=== PATIENT | female | born 1980 | race American Indian/Alaskan Native ===

== ENCOUNTER 2017-02-04 07:54 | Day surgery (SDC) | payer MEDICAID ==
[2017-01-14 07:28] VITALS: BMI 32.7
[2017-02-04] MEDS ORDERED: Midazolam 2 MG/2 ML VIAL ONE (10:20)
[2017-02-04] MEDS ORDERED: Propofol 10 mg/ml Inj (20 ML) ONE ×3 (10:21→11:51)
[2017-02-04] MEDS ORDERED: Lidocaine Hydrochloride 5 ML INJ ONE (10:23)
[2017-02-04] MEDS ORDERED: Rocuronium 10 mg/ml (5 ml) ONE (10:23)
[2017-02-04] MEDS ORDERED: ceFAZolin IV 2 gm in Dextrose 2 GM/50 ML BAG IVPB ONE (10:28)
[2017-02-04] MEDS ORDERED: Lactated Ringer's 1,000 ML IV ONE ×3 (10:33→12:17)
[2017-02-04] MEDS: Bupivacaine-Epi 0.25%-1:200,000 PF Inj ONE ×2 (11:14→12:05)
[2017-02-04] MEDS: Lidocaine 1% Inj (20ml) ONE ×2 (11:14→12:05)
[2017-02-04] MEDS: Bupivacaine HCl 0.25% PF (10 ml) Inj ONE ×4 (11:16→11:48)
[2017-02-04] MEDS: HYDROmorphone 0.5 mg/0.5 ml ISec IVP PRN ×4 (12:31→13:48)
[2017-02-04] MEDS ORDERED: HYDROmorphone 0.5 mg/0.5 ml ISec ONE (12:31)
--- NOTE | 2017-02-04 12:32 | PCM.SURG1 ---
Surgeon's Initial Post Op Note - Surgeon's Notes Surgeon: [employer] Supervisor: PGY4, Sakina RFNA Type of Anesthesia: General Endo, Local Pre-Operative Diagnosis: cholelithiasis Operative Findings: adhesions, large elongated gallbladder Post-Operative Diagnosis: cholelithiasis Operation Performed: Robotic assisted laparoscopic cholecystectomy, TAP block Specimen/Specimens Removed: gallbladder Estimated Blood Loss: EBL {In ML}: 10 Blood Products Given: N/A Drains Used: No Drains Post-Op Condition: Good Date of Surgery/Procedure: 02/04/17 Time of Surgery/Procedure: 10:30
[2017-02-04] MEDS ORDERED: Oxycodone/Acetaminophen 5/325 mg Tab PO ONE (12:38)
[2017-02-04 17:07] VITALS: BP 122/77; PULSE 88; RESP 16; TEMP 97.6; O2SAT 95
--- NOTE | 2017-02-04 19:28 | OP ---
PROCEDURE DATE: 02/04/2017 PREOPERATIVE DIAGNOSES: Chronic cholecystitis and cholelithiasis. POSTOPERATIVE DIAGNOSES: 1. Chronic cholecystitis and cholelithiasis. 2. 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 PROCEDURES DONE: 1. Robotic cholecystectomy. 2. Robotic lysis of adhesion. 3. Laparoscopic TAP block bilaterally. SURGEON: Roman Brownlee MD. ASSISTANTS: CARMEL Liu and Naveed Hernandes, PGY-4 resident. TYPE OF ANESTHESIA: General endotracheal tube anesthesia. ESTIMATED BLOOD LOSS: Around 10 mL. DRAINS: None. PATHOLOGY: Gallbladder with the gallstone was sent for the pathology. COMPLICATIONS: None. INTRAOPERATIVE FINDINGS: The patient had chronic cholecystitis and cholelithiasis and the patient had extremely long gallbladder containing multiple stones. The patient had extensive adhesion from the liver to the anterior abdominal wall due to the previous infection and extensive lysis of adhesion was done first. DESCRIPTION OF PROCEDURE: On intraoperative steps, this is a 36-year-old female who was diagnosed with chronic cholecystitis and cholelithiasis and patient was consented for robotic cholecystectomy, possible open, brought to the OR, placed supine on the operating table. After induction of anesthesia, abdomen was prepped and draped in the usual sterile fashion. A supraumbilical transverse incision was made. After incising skin and subcutaneous tissue, the fascia was incised. The robotic camera port was placed. Pneumo was created. Another three 8 mm port was placed in upper abdomen. Robot was brought in, camera arm as well as arm #1 and #2 was docked. After lysis of adhesion, the gallbladder was retracted cranially. Calot triangle dissection was done. Cystic duct and cystic artery was identified and clipped at 3 places and cut in between 2 clips near by gallbladder. Intraoperative Firefly was used for identification of the ductal anatomy and after that the gallbladder was dissected free from the gallbladder fossa, taken in an EndoCatch bag and taken out through the umbilical port site and sent off the table for the pathology. Now, the procedure was converted to laparoscopy after removing the instrument and undocking the robot and bilateral TAP block was given, first on the right side, upper and lower, 10 mL of Marcaine was given at each side and on the left side, upper and lower, the 10 mL of Marcaine was given. Total 40 mL of Marcaine was used and after that all the port was taken out under vision. Pneumo was deflated. Umbilical port site was closed in 2 layers, fascia with 0 Vicryl interrupted sutures, skin with 4-0 Monocryl and dry sterile dressing was applied. Patient tolerated the procedure well. Count of instrument was correct. There was no apparent complication. Patient was extubated in the OR, sent to the Postanesthesia Care Unit in stable condition. Roman Brownlee MD MTDD
== END 2017-02-04 16:25 | disposition home or self-care (01) ==
LOC: C.SDS 07:54
PROVIDERS: ATTEND Surgery Surgical Critical Care
DX: K80.20 Calculus of gallbladder without cholecystitis without obstruction (principal); K80.10 Calculus of gallbladder with chronic cholecystitis without obstruction
CPT/HCPCS: 47562; 88304; J0690; J1170; J2250; J2405; J2704; J3010; J7030; J7120